=== PATIENT | female | born 1995 | race Caucasian/White ===

== ENCOUNTER 2021-07-12 22:56 | Emergency (ER) | payer BC, SELFPAY ==
[2021-07-12 23:45] VITALS: BP 119/70; PULSE 80; RESP 18; TEMP 36.9; O2SAT 19; BMI 42.5
[2021-07-13 01:18] VITALS: BP 111/70; PULSE 74; RESP 16; TEMP 36.8; O2SAT 100
[2021-07-13 02:10] VITALS: BP 111/69; PULSE 75; RESP 18; TEMP 36.6; O2SAT 99
--- NOTE | 2021-09-01 11:53 | HMH.EDGENADL ---
ED Disposition Clinical Impression: Migraine Qualifiers: Migraine type: without aura Status migrainosus presence: without status migrainosus Intractability: intractable Qualified Code(s): G43.019 - Migraine without aura, intractable, without status migrainosus Clinical Impression: (Ruled Out): Migraine aura without headache Disposition: Home, Self-Care Condition on Discharge: Good Instructions: Migraine Headaches (Alternative Therapy), Migraine -- Adult Referrals: Provider,Referral, MD [Primary Care Provider] - - Critical Care Critical Care Time: No Attestation: On 07/12/21, the high probability of a clinically significant, sudden or life threatening deterioration of the following system(s) required my full and direct attention, intervention and personal management. The time I documented below is in addition to time spent performing reported procedures but includes the following listed in this critical care notation. Medical Decision Making - Phil Inquiry Pt receiving controlled substance: No Vital Signs: 07/12/21 23:45 07/13/21 01:18 07/13/21 02:10 Temperature 98.4 F 98.2 F 97.9 F Temperature Source Oral Oral Oral Pulse Rate 74 75 Pulse Rate [Right] 80 Respiratory Rate 18 16 18 Blood Pressure 111/70 111/69 Blood Pressure [Right Arm] 119/70 Blood Pressure Mean [Right Arm] 86 Blood Pressure Source Automatic Cuff Blood Pressure Source [Right Arm] Automatic Cuff Blood Pressure Position Supine 02 Sat by Pulse Oximetry 19 L Oxygen Delivery Method Room Air Room Air Room Air Orders (Tests/Meds): ED MEDICATIONS Discontinued Medications Generic Name Dose Route Start Last Admin Trade Name Freq PRN Reason Stop Dose Admin Diphenhydramine HCl 50 mg 07/13/21 00:07 07/13/21 00:50 Diphenhydramine 50mg/Ml Vial IV 07/13/21 00:08 50 mg ONCE ONE Administration Lactated Ringer's 1,000 mls @ 999 mls/hr 07/13/21 00:15 07/13/21 00:50 Lactated Ringer's 1000 Ml Bag IV 07/13/21 01:15 999 mls/hr .Q1H1M ANTON Administration Magnesium Sulfate 2 gm/ Sodium 104 mls @ 100 mls/hr 07/13/21 00:07 07/13/21 00:49 Chloride IV 07/13/21 01:09 100 mls/hr ONCE ONE Administration Ketorolac Tromethamine 15 mg 07/13/21 00:07 07/13/21 00:50 Ketorolac 30mg/Ml Vial IV 07/13/21 00:08 15 mg ONCE ONE Administration Metoclopramide HCl 10 mg 07/13/21 06:00 07/13/21 00:50 Metoclopramide Hcl 10mg/2ml Vial IVP 08/12/21 05:59 10 mg ACHS ANTON Administration Sodium Chloride 10 ml 07/13/21 00:07 Sodium Chloride 0.9% 10ml Flush Syringe IV 07/13/21 12:09 NEEDED PRN Maintain IV Site Medical Decision Narrative: Patient is a 25-year-old female presenting to emergency department chief complaint of headache. Differential diagnosis includes tension headache, migraine headache, have low suspicion for subarachnoid hemorrhage given headache description, history of headaches, and worsening of headache since its onset. Given this plan to give patient back in cocktail and reassess. On reassessment patient stated that she had significant improvement in her headache, she was hemodynamically stable given that she was discharged in stable condition. General Adult HPI - General Chief complaint: Headache Stated complaint: NIXON Time Seen by Provider: 07/12/21 23:59 Mode of Arrival: Ambulatory Source of Information: Patient Limitations: No Limitations Description of Symptoms (Recalled from ER Triage Doc. by RN): Pt c/o migraine that started ~4pm today. She took tylenol with no relief. Pt does have a h/o migraines and takes Aimovig injections as a migraine preventative. Although pt does not take any acute migraine medications. - History of Present Illness HPI narrative: Patient is a 22-year-old female who is presenting to the emergency department chief complaint of headache. Patient states that she has a past medical history of migraine headaches ever states that this 1 is w
== END 2021-07-13 02:14 | disposition home or self-care (01) ==
PROVIDERS: Emergency Provider Emergency Medicine
DX: Z53.21 Procedure and treatment not carried out due to patient leaving prior to being seen by health care provider (principal)
CPT/HCPCS: 96365; 96367; 96375; 99282

== ENCOUNTER 2023-09-06 19:17 | Emergency (ER) | payer BC, SELFPAY ==
[2023-09-06 19:35] VITALS: BP 131/86; PULSE 84; RESP 19; TEMP 36.6; O2SAT 98; BMI 41.3
--- NOTE | 2023-09-06 20:04 | EXP.UTC ---
Discharge Plan Disposition Patient Disposition: Home, Self-Care Condition: Good Prescriptions Prescriptions: New cephalexin 500 mg tablet 500 mg PO TID 7 Days Qty: 21 0RF No Action amitriptyline 75 mg tablet 75 mg PO DAILY venlafaxine 150 mg capsule,extended release 24hr 150 mg PO DAILY Patient Comments: TAKE 1 CAPSULE BY MOUTH EVERY DAY phentermine 37.5 mg tablet 37.5 mg PO DAILY Emgality Syringe 120 mg/mL syringe 120 mg SQ MONTHLY Referrals Follow up/Referrals: Gómez Berrios DO [Staff Physician] - See instructions (Call office tomorrow for appointment) Marylou Rice MD [Primary Care Provider] - See instructions Activity Restrictions/Add. Instructions Additional Instructions/Restrictions: Change dressing on finger 2-3 times daily Call and make appointment with Orthopedics Call office tomorrow for appointment Make sure to keep wound clean If it starts bleeding again and you are not able to get it to stop go straight to the ER Clinical Impressions Clinical Impression: Avulsion of finger tip Qualifiers: Encounter type: initial encounter Qualified Code(s): S61.209A - Unspecified open wound of unspecified finger without damage to nail, initial encounter Instructions Patient Instructions: DI for Avulsion Laceration (Not Requiring Sutures) Discharge ED Provider: Kiera Rain [facility] General Stated complaint: AO 09/06, right pointer finger lac Mode of Arrival: Ambulatory Source of Information: Patient Limitations: No Limitations Time Seen by Provider: 09/06/23 19:45 Description of Symptoms (Recalled from Triage Doc. by RN): Cut right index finger cutting potatoes HEENT Symptoms (Recalled from RN notes): No Resp Symptoms (Recalled from RN notes): No Skin Symptoms (Recalled from RN notes): Yes MS Symptoms (Recalled from RN notes): No Functional Status (Recalled from RN notes): n/a History of Present Illness Provider Complaint: Patient states that she was cutting potatoes earlier and the knife slipped and she accidently cut inside of right index finger at the side of the finger States that she waited trying to get it to stop bleeding but it was still oozing so she came in Related Data Home Medications Medication Instructions Recorded Confirmed amitriptyline 75 mg tablet 75 mg PO DAILY 09/06/23 09/06/23 galcanezumab-gnlm 120 mg/mL 120 mg SQ MONTHLY 09/06/23 09/06/23 subcutaneous syringe (Emgality) phentermine 37.5 mg tablet 37.5 mg PO DAILY 09/06/23 09/06/23 venlafaxine 150 mg 150 mg PO DAILY 09/06/23 09/06/23 capsule,extended release 24 hr Previous Rx's Medication Instructions Recorded cephalexin 500 mg tablet 500 mg PO TID 7 days #21 tabs 09/06/23 Allergies Allergy/AdvReac Type Severity Reaction Status Date / Time No Known Allergies Allergy Verified 09/06/23 19:53 Worker's Comp Is this a Worker's Comp case?: No [facility] Disclaimer: The information contained in this section may have been updated after the patient was seen, as this information can be updated by other users. Social History Smoking Status: Unknown if ever smoked alcohol intake: never current occupational status: unemployed Travel in the last 8 weeks: None ROS Obtained: Yes All systems reviewed & no additional complaints except as documented and Yes Systems reviewed as appropriate & no additional complaints except as documented Constitutional Constitutional: Reports system reviewed and no additional complaints, except as documented and Reports as per HPI ENT Ears, Nose, Mouth, and Throat: Reports system reviewed and no additional complaints, except as documented and Reports as per HPI Cardiovascular Cardiovascular: Reports system reviewed and no additional complaints, except as documented and Reports as per HPI Musculoskeletal Musculoskeletal: Reports system reviewed and no additional complaints, except as documented and Reports as per HPI Integumentary/Breas
--- NOTE | 2023-09-06 20:08 | XR_ITS ---
PROCEDURE INFORMATION: Exam: XR Right Hand Exam date and time: 09/06/2023 8:04 PM Age: 27 years old Clinical indication: Injury or trauma; Laceration; Right; Index finger; Additional info: Laceration to index finger TECHNIQUE: Imaging protocol: Radiologic exam of the right hand. Views: 3 or more views. COMPARISON: No relevant prior studies available. FINDINGS: Bones/joints: Normal. Soft tissues: Distal 2nd finger laceration and soft tissue swelling. No opaque foreign bodies. IMPRESSION: Distal 2nd finger laceration and soft tissue swelling. No opaque foreign bodies.
[2023-09-06 20:53] VITALS: BP 137/86; PULSE 84; RESP 18; TEMP 36.6; O2SAT 98
== END 2023-09-06 20:53 | disposition home or self-care (01) ==
PROVIDERS: Emergency Provider Nurse Practitioner; PCP Family Medicine
DX: S61.200A Unspecified open wound of right index finger without damage to nail, initial encounter (principal); W26.0XXA Contact with knife, initial encounter
CPT/HCPCS: 73130; 99204; 99212; G0463

== ENCOUNTER 2024-08-14 19:52 | Emergency (ER) | payer BC, SELFPAY ==
[2024-08-14 19:53] VITALS: BP 135/88; PULSE 110; RESP 20; TEMP 36.7; O2SAT 99; BMI 42.5
--- NOTE | 2024-08-14 21:46 | HMH.EDGENADL ---
Discharge Plan Disposition Patient Disposition: Home, Self-Care Prescriptions Prescriptions: No Action amitriptyline 75 mg tablet 75 mg PO DAILY venlafaxine 150 mg capsule,extended release 24hr 150 mg PO DAILY Patient Comments: TAKE 1 CAPSULE BY MOUTH EVERY DAY phentermine 37.5 mg tablet 37.5 mg PO DAILY Emgality Syringe 120 mg/mL syringe 120 mg SQ MONTHLY cephalexin 500 mg tablet 500 mg PO TID 7 Days Qty: 21 0RF Referrals Follow up/Referrals: Marylou Rice MD [Primary Care Provider] - See instructions Activity Restrictions/Add. Instructions Additional Instructions/Restrictions: Please follow-up with your primary care provider. Please return to the emergency department if you develop any new or worsening symptoms or become concerned for your health. Clinical Impressions Clinical Impression: Abdominal pain, Nausea vomiting and diarrhea Instructions Patient Instructions: DI for Acute Abdominal Pain Print Language Print Language: Norwegian Discharge ED Provider: Thaddeus Abraham General Adult HPI <NELSON Sheffield - Last Filed: 08/14/24 22:56> General Chief complaint: Abdominal Pain Stated complaint: Stomach pain Time Seen by Provider: 08/14/24 21:46 Mode of Arrival: Ambulatory Source of Information: Patient Limitations: No Limitations Description of Symptoms (Recalled from ER Triage Doc. by RN): pt began having sharp centrally located abd pain at noon today and then n/v/d and then noticed rectal bleeding that was scant at 1500 today after a few episodes of diarrhea. pt states she does think she has a hemmrrhoid. pt is on several meds for anxiety/depression and migraines History of Present Illness HPI narrative: Patient presents for evaluation of nausea vomiting and abdominal pain. Patient states that started around noon today has been constant and unchanging throughout the day. She has been intolerant of any oral intake today. She denies any fever chills hemoptysis hematochezia melena diarrhea. She has started a GLP-1 last but does not report any noticeable side effects yet Related Data Home Medications ?Medication ?Instructions ?Recorded ?Confirmed amitriptyline 75 mg tablet 75 mg PO DAILY 09/06/23 09/09/23 galcanezumab-gnlm 120 mg/mL 120 mg SQ MONTHLY 09/06/23 09/09/23 subcutaneous syringe (Emgality) phentermine 37.5 mg tablet 37.5 mg PO DAILY 09/06/23 09/09/23 venlafaxine 150 mg 150 mg PO DAILY 09/06/23 09/09/23 capsule,extended release 24 hr Previous Rx's ?Medication ?Instructions ?Recorded cephalexin 500 mg tablet 500 mg PO TID 7 days #21 tabs 09/06/23 Allergies Allergy/AdvReac Type Severity Reaction Status Date / Time No Known Allergies Allergy Verified 09/09/23 08:58 PFS <NELSON Sheffield - Last Filed: 08/14/24 22:56> COUNTS INCLUDE 234 BEDS AT THE [facility] Disclaimer: The information contained in this section may have been updated after the patient was seen, as this information can be updated by other users. Social History Smoking Status: Never smoker alcohol intake: never current occupational status: unemployed Travel in the last 8 weeks: None <NELSON Sheffield - Last Filed: 08/14/24 22:56> ROS Obtained: Yes Systems reviewed as appropriate & no additional complaints except as documented Physical Exam <NELSON Sheffield - Last Filed: 08/14/24 22:56> General General appearance: alert and in no apparent distress Respiratory Respiratory exam: Present normal lung sounds bilaterally Cardiovascular Cardiovascular exam: Present regular rate Neurological Exam Neurological exam: Present alert and oriented X3 Medical Decision Making <NELSON Sheffield - Last Filed: 08/14/24 22:56> Medical Records Medical records reviewed: Yes I reviewed the patient's medical records. Screening: Per USPSTF and CDC recommendations, given the prevalence of disease in our region, it is our hospital?s policy to screen for HIV and viral Hepatitis for all patients aged 18 and over and those with ongoing risk factors. Hpil Inquiry Pt receiving controlled substance: No Vital Signs: 08/14/24 19:53 08/15/24 00:53 Temperature 98.0 F 98.0 F Temperature Source Oral Pulse Rate 105 H Pulse Rate [Right Radial] 110 H Respiratory Rate 20 20 Blood Pressure 125/68 Blood Pressure [Right Arm] 135/88 Blood Pressure Mean [Right Arm] 103 02 Sat by Pulse Oximetry 99 Oxygen Delivery Method Room Air Room Air Lab Data Lab results reviewed: Yes I reviewed the patient's lab results. Lab Results 08/14/24 21:40: Procalcitonin 0.043 08/14/24 21:45: WBC 14.7 H, RBC 4.91, Hgb 14.2, Hct 44.4, MCV 90.5, MCH 28.9, MCHC 31.9, RDW 14.8, Plt Count 456 H, MPV 7.7, Neut % (Auto) 85.6 H, Lymph % (Auto) 9.9 L, [place] % (Auto) 3.4, Eos % (Auto) 0.5, Baso % (Auto) 0.5, Neut # (Auto) 12.6 H, Lymph # (Auto) 1.5, [place] # (Auto) 0.5, Eos # (Auto) 0.1, Baso # (Auto) 0.1, Total Counted 100, Neutrophils % (Manual) 86 H, Lymphocytes % (Manual) 11, Monocytes % (Manual) 3, Platelet Estimate Slight increase, RBC Morphology Normal, Sodium 133 L, Potassium 4.1, Chloride 95 L, Carbon Dioxide 27, Anion Gap 15.1 H, BUN 15, Creatinine 0.90, Estimated Creat Clear 96, Estimated GFR 76, Est GFR ( Amer) 92, Glucose 120 H, Calcium 9.9, Total Bilirubin 0.7, AST 34, ALT 31, Alkaline Phosphatase 77, Total Protein 9.0 H, Albumin 4.9, Globulin 4.1 H, Albumin/Globulin Ratio 1.2, Lipase 86, Urine HCG, Qual Negative 08/14/24 21:51: Urine Color Yellow, Urine Appearance Clear, Urine pH 6.0, Ur Specific [place] >= 1.030, Urine Protein Negative, Urine Glucose (UA) Negative, Urine Ketones Trace, Urine Blood Trace-i, Urine Nitrate Negative, Urine Bilirubin Negative, Urine Urobilinogen 0.2, Ur Leukocyte Esterase Negative, Urine RBC Occasional, Urine WBC None, Ur Squamous Epith Cells 5-10, Urine Bacteria Trace 08/14/24 23:00: Lactate 0.9 08/14/24 21:45 08/14/24 21:45 Orders (Tests/Meds): ED MEDICATIONS Discontinued Medications Generic Name Dose Route Start Last Admin Trade Name Freq PRN Reason Stop Dose Admin Acetaminophen 1,000 mg 08/14/24 21:52 08/14/24 21:58 Acetaminophen 1,000mg/100ml Vial IV 08/14/24 21:53 1,000 mg ONCE ONE Administration Iopamidol 75 ml 08/14/24 23:34 08/14/24 23:35 Iopamidol-370 (76%);100ml Bottle IV 08/14/24 23:35 75 ml ONCE ONE Administration Ondansetron HCl 4 mg 08/14/24 21:52 08/14/24 21:58 Ondansetron 4mg/2ml Vial IV 08/14/24 21:53 4 mg ONCE ONE Administration Sodium Chloride 10 ml 08/14/24 23:34 08/14/24 23:35 Sodium Chloride 0.9% 10ml Syr (Rad Only) IV 09/13/24 23:33 10 ml NEEDED PRN Administration Maintain IV Site ORDERS Category Date Time Status CT abdomen pelvis w con Stat Cat Scan 08/14/24 22:42 Completed Complete Blood Count Auto Diff Stat Lab 08/14/24 21:45 Completed Comprehensive Metabolic Panel Stat Lab 08/14/24 21:45 Completed Lactic Acid Stat Lab 08/14/24 23:00 Completed Lipase Stat Lab 08/14/24 21:45 Completed Procalcitonin Stat Lab 08/14/24 21:40 Completed Urinalysis and Microscopic Stat Lab 08/14/24 21:51 Completed Urine , HCG Qual. Stat Lab 08/14/24 21:45 Completed Blood Culture Stat Micro 08/14/24 22:43 Received Medical Decision Narrative: In summary patient is a 28-year-old female who presents to the emergency department for evaluation of abdominal pain. Patient is initially normotensive but tachycardic upon arrival, afebrile. Physical exam is remarkable for mid abdominal pain to palpation without rebound or guarding or rigidity. She does have previous abdominal surgery for a cholecystectomy and appendectomy. Bowel sounds are normal.. Differential diagnosis includes pancreatitis versus gastroenteritis etc. Initial workup will be conducted with hematologic labs urinalysis CT scan abdomen pelvis. Initial interventions include crystalloid bolus Toradol Tylenol Zofran. Initial workup is pending at the time of handoff at [address] Abraham <Thaddeus Abraham MD - Last Filed: 08/15/24 02:10> Vital Signs: 08/14/24 19:53 08/15/24 00:53 Temperature 98.0 F 98.0 F Temperature Source Oral Pulse Rate 105 H Pulse Rate [Right Radial] 110 H Respiratory Rate 20 20 Blood Pressure 125/68 Blood Pressure [Right Arm] 135/88 Blood Pressure Mean [Right Arm] 103 02 Sat by Pulse Oximetry 99 Oxygen Delivery Method Room Air Room Air Lab Data Lab Results 08/14/24 21:40: Procalcitonin 0.043 08/14/24 21:45: WBC 14.7 H, RBC 4.91, Hgb 14.2, Hct 44.4, MCV 90.5, MCH 28.9, MCHC 31.9, RDW 14.8, Plt Count 456 H, MPV 7.7, Neut % (Auto) 85.6 H, Lymph % (Auto) 9.9 L, [place] % (Auto) 3.4, Eos % (Auto) 0.5, Baso % (Auto) 0.5, Neut # (Auto) 12.6 H, Lymph # (Auto) 1.5, [place] # (Auto) 0.5, Eos # (Auto) 0.1, Baso # (Auto) 0.1, Total Counted 100, Neutrophils % (Manual) 86 H, Lymphocytes % (Manual) 11, Monocytes % (Manual) 3, Platelet Estimate Slight increase, RBC Morphology Normal, Sodium 133 L, Potassium 4.1, Chloride 95 L, Carbon Dioxide 27, Anion Gap 15.1 H, BUN 15, Creatinine 0.90, Estimated Creat Clear 96, Estimated GFR 76, Est GFR ( Amer) 92, Glucose 120 H, Calcium 9.9, Total Bilirubin 0.7, AST 34, ALT 31, Alkaline Phosphatase 77, Total Protein 9.0 H, Albumin 4.9, Globulin 4.1 H, Albumin/Globulin Ratio 1.2, Lipase 86, Urine HCG, Qual Negative 08/14/24 21:51: Urine Color Yellow, Urine Appearance Clear, Urine pH 6.0, Ur Specific [place] >= 1.030, Urine Protein Negative, Urine Glucose (UA) Negative, Urine Ketones Trace, Urine Blood Trace-i, Urine Nitrate Negative, Urine Bilirubin Negative, Urine Urobilinogen 0.2, Ur Leukocyte Esterase Negative, Urine RBC Occasional, Urine WBC None, Ur Squamous Epith Cells 5-10, Urine Bacteria Trace 08/14/24 23:00: Lactate 0.9 Orders (Tests/Meds): ED MEDICATIONS Discontinued Medications Generic Name Dose Route Start Last Admin Trade Name Freq PRN Reason Stop Dose Admin Acetaminophen 1,000 mg 08/14/24 21:52 08/14/24 21:58 Acetaminophen 1,000mg/100ml Vial IV 08/14/24 21:53 1,000 mg ONCE ONE Administration Iopamidol 75 ml 08/14/24 23:34 08/14/24 23:35 Iopamidol-370 (76%);100ml Bottle IV 08/14/24 23:35 75 ml ONCE ONE Administration Ondansetron HCl 4 mg 08/14/24 21:52 08/14/24 21:58 Ondansetron 4mg/2ml Vial IV 08/14/24 21:53 4 mg ONCE ONE Administration Sodium Chloride 10 ml 08/14/24 23:34 08/14/24 23:35 Sodium Chloride 0.9% 10ml Syr (Rad Only) IV 09/13/24 23:33 10 ml NEEDED PRN Administration Maintain IV Site ORDERS Category Date Time Status CT abdomen pelvis w con Stat Cat Scan 08/14/24 22:42 Completed Complete Blood Count Auto Diff Stat Lab 08/14/24 21:45 Completed Comprehensive Metabolic Panel Stat Lab 08/14/24 21:45 Completed Lactic Acid Stat Lab 08/14/24 23:00 Completed Lipase Stat Lab 08/14/24 21:45 Completed Procalcitonin Stat Lab 08/14/24 21:40 Completed Urinalysis and Microscopic Stat Lab 08/14/24 21:51 Completed Urine , HCG Qual. Stat Lab 08/14/24 21:45 Completed Blood Culture Stat Micro 08/14/24 22:43 Received Medical Decision Narrative: In summary patient is a 28-year-old female who presents to the emergency department for evaluation of abdominal pain. Patient is initially normotensive but tachycardic upon arrival, afebrile. Physical exam is remarkable for mid abdominal pain to palpation without rebound or guarding or rigidity. She does have previous abdominal surgery for a cholecystectomy and appendectomy. Bowel sounds are normal.. Differential diagnosis includes pancreatitis versus gastroenteritis etc. Initial workup will be conducted with hematologic labs urinalysis CT scan abdomen pelvis. Initial interventions include crystalloid bolus Toradol Tylenol Zofran. Initial workup is pending at the time of handoff at [address] Abraham. Leigh TATUM: I assumed care of the patient at the time of handoff from the prior provider. On reassessment patient reports symptomatic improvement. Labs results interpreted by me and show mild leukocytosis, no significant electrolyte derangement, negative lipase. Urinalysis not concerning for infection. CT imaging interpreted by me and shows no evidence of pancreatitis, colitis or other pathology. Interactive discussion had with patient regarding presentation. Most likely source of her symptoms is the recent initiation of this is Zepbound. Symptoms could also be consistent with gastroenteritis. No evidence of emergent pathology at this time. Patient was discharged in stable condition with return precautions. She reports she has Zofran at home which has been helpful. I was consulted by the ELADIO, and we discussed the complexity of the problems being addressed. I approved the treatment and management plan for this patient?s care in the Emergency Department, thus performing a substantive portion of the medical decision making. Thaddeus Abraham MD Critical Care <NELSON Sheffield - Last Filed: 08/14/24 22:56> Critical Care Time Critical Care Time: No
[2024-08-14 21:55] LABS: Microscopic, Urine URINE MICROSCOPIC (MICROSCOPIC)
[2024-08-14] MEDS: ACETAMINOPHEN 1,000MG/100ML VIAL 1000 MG IV (21:58)
[2024-08-14] MEDS: ONDANSETRON 4MG/2ML VIAL 4 MG IV (21:58)
[2024-08-14 22:07] LABS: Basophils # 0.1 K/mm3 (0-0.2); Basophils % 0.5 % (0.1-2.0); Eosinophils # 0.1 K/mm3 (0.0-0.4); Eosinophils % 0.5 % (0.1-12.0); Hematocrit 44.4 % (37.0-47.0); Hemoglobin 14.2 g/dL (12.2-16.2); Lymphocytes # 1.5 K/mm3 (0.7-4.5); Lymphocytes % 9.9 % (10-50); Mean Corpuscular HGB Conc 31.9 g/dL (31.8-35.4); Mean Corpuscular Hemoglobin 28.9 pg (27.0-31.2); Mean Corpuscular Volume 90.5 fl (81-99); Mean Platelet Volume 7.7 fl (7.4-10.4); Monocytes # 0.5 K/mm3 (0.1-1.0); Monocytes % 3.4 % (1.7-9.3); Neutrophils # 12.6 K/mm3 (1.8-7.8); Neutrophils % 85.6 % (37.0-80.0); Platelet Count 456 K/mm3 (142-424); Red Blood Count 4.91 M/mm3 (4.20-5.40); Red Cell Distribution Width 14.8 % (11.5-17.5); White Blood Count 14.7 K/mm3 (4.8-10.8)
[2024-08-14 22:07] LABS: Appearance,Urine CLEAR (Clear); Bilirubin,Urine Negative (Negative); Blood, Urine TRACE-I (Negative); Color,Urine YELLOW (Yellow); Glucose,Urine (UA) Negative (Negative); Ketones,Urine TRACE (Negative); Leukocyte Esterase,Urine Negative (Negative); Nitrate,Urine Negative (Negative); Protein,Urine Negative (Negative); Specific Gravity, Urine >= 1.030 (1.005-1.030); Urobilinogen,Urine 0.2 EU/dl (0.2)
[2024-08-14 22:08] LABS: Albumin Level 4.9 g/dl (3.5-5.0); Chloride 95 mmol/L (98-107); Potassium 4.1 mmoL/L (3.5-5.1); Sodium 133 mmol/L (136-145); Urine Pregnancy, HCG Qual. Negative (Negative)
[2024-08-14 22:11] LABS: Alanine Aminotransferase 31 U/L (12-78); Albumin/Globulin Ratio 1.2 (1.1-1.8); Alkaline Phosphatase 77 U/L (38-126); Anion Gap 15.1 mEq/L (5-15); Aspartate Amino Transferase 34 U/L (14-36); Bilirubin,Total 0.7 mg/dl (0.2-1.3); Blood Urea Nitrogen 15 mg/dl (7-17); Calcium 9.9 mg/dl (8.4-10.2); Carbon Dioxide 27 mmol/L (22.0-30.0); Creatinine Clearance Estimated 96 mL/min (50-200); Estimated Glomerular Filt Rate 76 ml/min (>60); GFR (African American) 92 ML/MIN (>60); Globulin 4.1 g/dL (1.3-3.2); Glucose 120 mg/dl (74-100); MANUAL DIFFERENTIAL MANUAL DIFFERENTIAL (MANUAL DIFF)
[2024-08-14 22:20] LABS: Lipase 86 U/L (23-300)
[2024-08-14 22:21] LABS: Bacteria,Urine Trace /lpf; RBC,Urine Occasional #/hpf (0-3)
--- NOTE | 2024-08-14 22:42 | CT_ITS ---
PROCEDURE INFORMATION: Exam: CT Abdomen And Pelvis With Contrast Exam date and time: 08/14/2024 11:27 PM Age: 28 years old Clinical indication: Abdominal pain; Generalized; Additional info: Nausea vomiting abdominal pain TECHNIQUE: Imaging protocol: Computed tomography of the abdomen and pelvis with contrast. Radiation optimization: All CT scans at this facility use at least one of these dose optimization techniques: automated exposure control; mA and/or kV adjustment per patient size (includes targeted exams where dose is matched to clinical indication); or iterative reconstruction. Contrast material: ISOVUE; Contrast volume: 75 ml; Contrast route: IV; COMPARISON: No relevant prior studies available. FINDINGS: Lungs: Calcified left lower lobe granuloma. Liver: Normal. No mass. Gallbladder and biliary ducts: The gallbladder is absent. There is no biliary ductal dilation. Pancreas: Normal. No ductal dilation. Spleen: Normal. No splenomegaly. Adrenal glands: Normal. No mass. Kidneys and ureters: Normal. No hydronephrosis. Stomach and bowel: Unremarkable. No obstruction. No mucosal thickening. Appendix: No evidence of appendicitis. Intraperitoneal space: Unremarkable. No free air. No significant fluid collection. Vasculature: Unremarkable. No abdominal aortic aneurysm. Lymph nodes: Calcified epicardial lymph node. Urinary bladder: Unremarkable as visualized. Reproductive: Unremarkable as visualized. Bones/joints: Unremarkable. No acute fracture. Soft tissues: Unremarkable. IMPRESSION: There is no acute process evident within the abdomen or pelvis.
[2024-08-14 22:47] LABS: Lymphocytes % 11 % (10-50); Monocytes % 3 % (2-9); Neutrophils % 86 % (42-76); RBC Morphology Normal; Total Cells Counted 100
[2024-08-14 22:48] LABS: Platelet Estimate Slight Increase
[2024-08-14] MEDS: IOPAMIDOL-370 (76%);100ML BOTTLE 75 ML IV (23:35)
[2024-08-14] MEDS: SODIUM CHLORIDE 0.9% 10ML SYR (RAD ONLY) 10 ML IV (23:35)
[2024-08-14 23:41] LABS: Lactic Acid 0.9 mmol/L (0.7-2.1)
[2024-08-15] LABS: Procalcitonin 0.043 ng/mL (0.0-2.0)
[2024-08-15 00:53] VITALS: BP 125/68; PULSE 105; RESP 20; TEMP 36.7; O2SAT 95
== END 2024-08-15 00:54 | disposition home or self-care (01) ==
PROVIDERS: Physician Assistant; Emergency Provider Emergency Medicine; PCP Family Medicine
DX: R10.9 Unspecified abdominal pain (principal); R11.2 Nausea with vomiting, unspecified; R19.7 Diarrhea, unspecified
CPT/HCPCS: 99285; 96374; 96375; 74177; 80053; 81001; 81025; 83605; 83690; 84145; 85007; 85025; 87040; J0131; J2405; Q9967

== ENCOUNTER 2025-03-13 08:39 | Emergency (ER) | payer BC, SELFPAY ==
[2025-03-13] VITALS (8 sets, daily range): BP systolic 96–115; BP diastolic 55–69; PULSE 70–89; RESP 16–18; TEMP 37; O2SAT 98–100; BMI 39.5
--- NOTE | 2025-03-13 08:54 | XR_ITS ---
FINAL REPORT CLINICAL HISTORY: puncture wound plantar foot, r/o retained FB FINDINGS: RIGHT FOOT 3 views of the right foot were obtained. There is no acute fracture or dislocation. Visualized joint spaces are normally aligned. Soft tissues are unremarkable. IMPRESSION: No acute bony abnormality. Reviewed, Interpreted and Dictated by Darwin Lanza MD Transcribed by Elif Jorge Authenticated and [facility]
--- NOTE | 2025-03-13 09:03 | PC.NURSE ---
speaking with Dr. Hernandez
--- NOTE | 2025-03-13 09:16 | CT_ITS ---
FINAL REPORT TECHNIQUE: Axial imaging of the right foot was obtained with contrast. This study was performed with techniques to keep radiation doses as low as reasonably achievable (ALARA). Individualized dose reduction techniques using automated exposure control or adjustment of mA and/or kV according to the patient's size were employed. CLINICAL HISTORY: puncture wound bottom of foot, conc. retained shoe FINDINGS: There is no acute fracture or dislocation. Joint spaces are preserved. There is a small os trigonum noted measuring 9 mm. No radiopaque foreign body is identified. Soft tissues are unremarkable. IMPRESSION: No acute bony abnormality or radiopaque foreign body identified. Reviewed, Interpreted and Dictated by Darwin Lanza MD Transcribed by Elif Jorge Authenticated and . [facility]
--- NOTE | 2025-03-13 09:19 | ED_ITS ---
Discharge Plan Disposition Patient Disposition: Home, Self-Care Condition: Good Prescriptions Prescriptions: New ciprofloxacin HCl 500 mg tablet 500 mg PO BID Qty: 20 0RF sulfamethoxazole-trimethoprim [Bactrim DS] 800-160 mg tablet 1 tab PO BID 10 Days Qty: 20 0RF No Action amitriptyline 75 mg tablet 75 mg PO DAILY venlafaxine 150 mg capsule,extended release 24hr 150 mg PO DAILY Patient Comments: TAKE 1 CAPSULE BY MOUTH EVERY DAY phentermine 37.5 mg tablet 37.5 mg PO DAILY Emgality Syringe 120 mg/mL syringe 120 mg SQ MONTHLY cephalexin 500 mg tablet 500 mg PO TID 7 Days Qty: 21 0RF Referrals Follow up/Referrals: Marylou Rice MD [Primary Care Provider] - See instructions Leigha Hernandez DPM [Staff Physician] - See instructions Activity Restrictions/Add. Instructions Additional Instructions/Restrictions: You were evaluated in the emergency department today. Please keep your foot clean and dry. Do not submerge under any water. Use the hard sole shoe to help offload weight from your foot and provide support across your foot. Use the crutches as needed to support weightbearing in your foot. Please call Dr. Hernandez's office today to schedule an appointment. supervisor sterile processing your prescription for antibiotics and take the full course as prescribed. Return to the emergency department for new or worsening symptoms. Clinical Impressions Clinical Impression: Puncture wound of foot, right Stand Alone Forms Stand Alone Forms: Work/School Release Instructions Patient Instructions: DI for Puncture Wound Print Language Print Language: Wallisian Discharge ED Provider: Ngoc Davis General Adult HPI General Chief complaint: Wound/Laceration Stated complaint: AO 03/12/25, right foot puncture Time Seen by Provider: 03/13/25 08:46 Mode of Arrival: Ambulatory Description of Symptoms (Recalled from ER Triage Doc. by RN): pt to the ED with redness and swelling to her right root after stepping on a stick that went through her shoe and into the ball of her foot. pt top of right foot is swollen, red and tender to the touch. +2 pulses assessed in the effected feet. History of Present Illness HPI narrative: This patient is a 29-year-old female who denies significant past medical history presenting to the emergency department for evaluation with concern for puncture wound, redness, pain, and swelling to the right foot after stepping on a stick that went through her croc yesterday. She notes that this happened when she was doing yard work. Last tetanus shot was about 5 years ago. She has significant pain to her right foot with swelling and redness extending to the dorsum of the right foot. She is not sure if her shoe could have broken off or if she could have any sort of retained foreign body or not. No other concerns or complaints noted at this time. Related Data Home Medications ?Medication ?Instructions ?Recorded ?Confirmed amitriptyline 75 mg tablet 75 mg PO DAILY 09/06/23 09/09/23 galcanezumab-gnlm 120 mg/mL 120 mg SQ MONTHLY 09/06/23 09/09/23 subcutaneous syringe (Emgality) phentermine 37.5 mg tablet 37.5 mg PO DAILY 09/06/23 09/09/23 venlafaxine 150 mg 150 mg PO DAILY 09/06/23 09/09/23 capsule,extended release 24 hr Previous Rx's ?Medication ?Instructions ?Recorded cephalexin 500 mg tablet 500 mg PO TID 7 days #21 tabs 09/06/23 ciprofloxacin HCl 500 mg tablet 500 mg PO BID #20 tabs 03/13/25 sulfamethoxazole 800 1 tab PO BID 10 days #20 tabs 03/13/25 mg-trimethoprim 160 mg tablet (Bactrim DS) Allergies Allergy/AdvReac Type Severity Reaction Status Date / Time No Known Allergies Allergy Verified 09/09/23 08:58 [facility] Disclaimer: The information contained in this section may have been updated after the patient was seen, as this information can be updated by other users. Social History Smoking Status: Never smoker alcohol intake: never current occupational status: unemployed Travel in the last 8 weeks?: None Other Medical History Have you received the Flu Vaccine for this season: No Have you received the Pneumonia Vaccine: No ROS Obtained: Yes All systems reviewed & no additional complaints except as documented Physical Exam General General appearance: alert and in no apparent distress Head Head exam: atraumatic and normocephalic Eye Eye exam: Present normal appearance, PERRL and EOMI ENT ENT exam: Present normal exam, normal oropharynx, mucous membranes moist and normal external ear exam Neck Neck exam: Present normal inspection, full ROM and trachea midline; Absent tenderness Chest Chest inspection: Present normal inspection and symmetric chest wall rise; Absent tenderness Respiratory Respiratory exam: Present normal lung sounds bilaterally; Absent respiratory distress, wheezes, stridor or accessory muscle use Cardiovascular Cardiovascular exam: Present regular rate and normal rhythm Abdominal Exam Abdominal exam: Present soft; Absent distention, tenderness or guarding Extremities Exam Extremities exam: Present full ROM, tenderness, normal capillary refill, edema and other (Puncture wound to the plantar aspect of the right foot without obvious visible foreign body from the external surface. Redness, warmth, and swelling to the dorsum of the right foot. Neurovascularly intact) Back Exam Back exam: Present normal inspection and full ROM; Absent tenderness Neurological Exam Neurological exam: Present alert, oriented X3, CN II-XII intact and normal gait; Absent motor sensory deficit Psychiatric Psychiatric exam: Present normal affect and normal mood Skin Skin exam: Present warm and dry Medical Decision Making Medical Records Medical records reviewed: Yes I reviewed the patient's medical records. Screening: Per USPSTF and CDC recommendations, given the prevalence of disease in our region, it is our hospital?s policy to screen for HIV and viral Hepatitis for all patients aged 18 and over and those with ongoing risk factors. Phil Inquiry Pt receiving controlled substance: No Vital Signs: 03/13/25 08:51 03/13/25 09:31 03/13/25 10:00 Temperature 98.6 F Temperature Source Oral Pulse Rate 80 75 Pulse Rate [Left Radial] 70 Respiratory Rate 17 Blood Pressure 110/69 108/59 L Blood Pressure [Right Arm] 115/64 Blood Pressure Mean 75 Blood Pressure Mean [Right Arm] 81 Blood Pressure Source Blood Pressure Source [Right Arm] Automatic Cuff Blood Pressure Position [Right Arm] Sitting 02 Sat by Pulse Oximetry 100 99 100 Oxygen Delivery Method Room Air 03/13/25 10:31 03/13/25 11:00 03/13/25 11:30 Temperature Temperature Source Pulse Rate 89 84 79 Pulse Rate [Left Radial] Respiratory Rate 16 Blood Pressure 110/65 96/57 L 101/55 L Blood Pressure [Right Arm] Blood Pressure Mean 80 75 Blood Pressure Mean [Right Arm] Blood Pressure Source Blood Pressure Source [Right Arm] Blood Pressure Position [Right Arm] 02 Sat by Pulse Oximetry 100 100 99 Oxygen Delivery Method Room Air 03/13/25 12:00 03/13/25 12:01 Temperature 98.6 F Temperature Source Oral Pulse Rate 83 80 Pulse Rate [Left Radial] Respiratory Rate 17 18 Blood Pressure 102/56 L 102/56 L Blood Pressure [Right Arm] Blood Pressure Mean Blood Pressure Mean [Right Arm] Blood Pressure Source Automatic Cuff Blood Pressure Source [Right Arm] Blood Pressure Position [Right Arm] 02 Sat by Pulse Oximetry 98 Oxygen Delivery Method Room Air Room Air Lab Data Lab results reviewed: Yes I reviewed the patient's lab results. Lab Results 03/13/25 10:18: WBC 8.1, RBC 4.34, Hgb 12.7, Hct 39.1, MCV 90.1, MCH 29.3, MCHC 32.5, RDW 13.6, Plt Count 327, MPV 9.4, Neut % (Auto) 66.5, Lymph % (Auto) 24.0, [place] % (Auto) 6.9, Eos % (Auto) 1.7, Baso % (Auto) 0.5, Neut # (Auto) 5.4, Lymph # (Auto) 2.0, [place] # (Auto) 0.6, Eos # (Auto) 0.1, Baso # (Auto) 0.0, ESR 28 H, Sodium 139, Potassium 3.7, Chloride 103, Carbon Dioxide 29, Anion Gap 10.7, BUN 20 H, Creatinine 0.70, Estimated Creat Clear 225, Estimated GFR 100, Est GFR ( Amer) 121, Glucose 91, Calcium 9.1, Total Bilirubin 0.5, AST 26, ALT 21, Alkaline Phosphatase 67, C-Reactive Protein 14.1 H, Total Protein 7.6, Albumin 4.2, Globulin 3.4 H, Albumin/Globulin Ratio 1.2, Serum HCG, Qual Negative 03/13/25 10:18 03/13/25 10:18 Orders (Tests/Meds): ED MEDICATIONS Discontinued Medications Generic Name Dose Route Start Last Admin Trade Name Freq PRN Reason Stop Dose Admin Acetaminophen 1,000 mg 03/13/25 09:00 03/13/25 09:36 Acetaminophen 500mg Tab PO 03/13/25 09:01 1,000 mg ONCE ONE Administration Bacitracin 1 each 03/13/25 11:52 03/13/25 12:05 Bacitracin Oint 0.9gm Udp TP 03/13/25 11:53 1 each ONCE ONE Administration Ibuprofen 800 mg 03/13/25 09:00 03/13/25 09:36 Ibuprofen 400 Mg Tablet PO 03/13/25 09:01 800 mg ONCE ONE Administration Iopamidol 75 ml 03/13/25 10:24 03/13/25 10:26 Iopamidol-370 (76%);100ml Bottle IV 03/13/25 10:25 Not Given ONCE ONE Iopamidol 100 ml 03/13/25 10:26 03/13/25 10:27 Iopamidol-370 (76%);100ml Bottle IV 03/13/25 10:27 100 ml ONCE ONE Administration Levofloxacin 750 mg 03/13/25 09:13 03/13/25 09:32 Levofloxacin 750 Mg Tablet PO 03/13/25 09:14 750 mg ONCE ONE Administration Sodium Chloride 10 ml 03/13/25 10:24 03/13/25 10:25 Sodium Chloride 0.9% 10ml Syr (Rad Only) IV 03/13/25 10:25 10 ml ONCE ONE Administration Tetanus/Reduced Diphtheria/Acell Pertussis 0.5 ml 03/13/25 08:54 03/13/25 09:33 Tet/Diphth/Pert-Adult 0.5ml Syringe IM 03/13/25 08:55 0.5 ml .ONCE ONE Administration Trimethoprim/Sulfamethoxazole 1 each 03/13/25 09:16 03/13/25 09:36 Sulfa/Trimethoprim 1 Tablet PO 03/13/25 09:17 1 each ONCE ONE Administration ORDERS Category Date Time Status CT foot RT w con Stat Cat Scan 03/13/25 09:16 Completed Foot XR right minimum 3 views [XR foot RT min 3V] Stat Exams 03/13/25 08:54 Completed CRP [C-Reactive Protein] Stat Lab 03/13/25 10:18 Completed Complete Blood Count Auto Diff Stat Lab 03/13/25 10:18 Completed Comprehensive Metabolic Panel Stat Lab 03/13/25 10:18 Completed ESR [Erythrocyte Sedimentation Rate] Stat Lab 03/13/25 10:18 Completed Serum [HCG Qualitative, Serum] Stat Lab 03/13/25 10:18 Completed Medical Decision Narrative: In summary, this patient is a 29-year-old female presenting to the Emergency Department for evaluation of redness, warmth, pain, and swelling to the right foot after stepping on a stick that went through her shoe and into her foot yesterday. Differential diagnoses considered include but are not limited to retained foreign body, puncture wound, cellulitis, abscess. Ruling out the most morbid conditions drove assessment. On exam, the patient has redness, warmth, swelling to the dorsum of the right foot and a puncture wound to the plantar aspect of the right foot. No obvious pus draining, no obvious retained foreign body visible on external exam though I am concerned for this based on mechanism and the amount of soft tissue swelling that she has. workup included x-rays of the right foot. She was given Tdap booster, oral Bactrim and Levaquin for MRSA and Pseudomonas coverage, and oral Tylenol and ibuprofen. I independently interpreted x-ray prior to the radiologist read and noted no obvious retained foreign body. Please see their read for final interpretation. I had an interactive discussion with Dr. Hernandez with podiatry who recommended labs including ESR/CRP and CT foot. Labs were obtained that demonstrated reassuring CBC with no significant leukocytosis or anemia, reassuring chemistry. CRP and ESR very mildly elevated. On reassessment, the patient is resting comfortably. I independently interpreted CT prior to radiology read and noted no obvious retained foreign body. Please see their read for documentation. Given this, Dr. Dumont feels the patient is appropriate for outpatient antibiotics and close follow-up. They did call her to arrange close follow-up. She was discharged with prescriptions for Bactrim and ciprofloxacin, instructions for supportive care, and very strict return precautions. Critical Care Critical Care Time Critical Care Time: No
[2025-03-13] MEDS: levoFLOXacin 750 MG TABLET PO (09:32)
[2025-03-13] MEDS: TET/DIPHTH/PERT-ADULT 0.5ML SYRINGE 0.5 ML IM (09:33)
[2025-03-13] MEDS: SULFA/TRIMETHOPRIM 1 TABLET 1 EACH PO (09:36)
[2025-03-13] MEDS: IBUPROFEN 400 MG TABLET 800 MG PO (09:36)
[2025-03-13] MEDS: ACETAMINOPHEN 500MG TAB 1000 MG PO (09:36)
[2025-03-13] MEDS: SODIUM CHLORIDE 0.9% 10ML SYR (RAD ONLY) 10 ML IV (10:25)
[2025-03-13 10:26] LABS: Basophils % 0.5 % (0.1-2.0); Eosinophils # 0.1 Kmm3 (0.0-0.4); Eosinophils % 1.7 % (0.1-12.0); Hematocrit 39.1 % (37.0-47.0); Hemoglobin 12.7 g/dL (12.2-16.2); Mean Corpuscular HGB Conc 32.5 g/dL (31.8-35.4); Mean Corpuscular Hemoglobin 29.3 pg (27.0-31.2); Mean Corpuscular Volume 90.1 fl (81-99); Mean Platelet Volume 9.4 fl (7.4-10.4); Monocytes # 0.6 K/mm3 (0.1-1.0); Monocytes % 6.9 % (1.7-9.3); Neutrophils # 5.4 K/mm3 (1.8-7.8); Neutrophils % 66.5 % (37.0-80.0); Nucleated Red Blood Cells # 0 10^3/uL; Nucleated Red Blood Cells % 0 %; Platelet Count 327 K/mm3 (142-424); Red Blood Count 4.34 M/mm3 (4.20-5.40); Red Cell Distribution Width 13.6 % (11.5-17.5); Red Cell Distribution Width-SD 44.8 fL; White Blood Count 8.1 K/mm3 (4.8-10.8)
[2025-03-13] MEDS: IOPAMIDOL-370 (76%);100ML BOTTLE 100 ML IV (10:27)
[2025-03-13 10:40] LABS: HCG Qualitative, Serum Negative (Negative)
[2025-03-13 10:44] LABS: Alanine Aminotransferase 21 U/L (12-78); Albumin Level 4.2 g/dl (3.5-5.0); Albumin/Globulin Ratio 1.2 (1.1-1.8); Alkaline Phosphatase 67 U/L (38-126); Anion Gap 10.7 mEq/L (5-15); Aspartate Amino Transferase 26 U/L (14-36); Bilirubin,Total 0.5 mg/dl (0.2-1.3); Blood Urea Nitrogen 20 mg/dl (7-17); Calcium 9.1 mg/dl (8.4-10.2); Carbon Dioxide 29 mmol/L (22.0-30.0); Chloride 103 mmol/L (98-107); Creatinine Clearance Estimated 225 mL/min (50-200); Estimated Glomerular Filt Rate 100 ml/min (>60); GFR (African American) 121 ML/MIN (>60); Globulin 3.4 g/dL (1.3-3.2); Glucose 91 mg/dl (74-100); Potassium 3.7 mmoL/L (3.5-5.1); Sodium 139 mmol/L (136-145); Total Protein,Serum 7.6 g/dl (6.3-8.2)
[2025-03-13 10:48] LABS: C-Reactive Protein 14.1 mg/L (0-4)
[2025-03-13 11:22] LABS: Erythrocyte Sedimentation Rate 28 mm/hr (0-20)
[2025-03-13] MEDS: BACITRACIN OINT 0.9GM UDP 1 EACH TP (12:05)
== END 2025-03-13 12:14 | disposition home or self-care (01) ==
PROVIDERS: Emergency Provider Emergency Medicine; PCP Family Medicine
DX: S91.331A Puncture wound without foreign body, right foot, initial encounter (principal); W45.8XXA Other foreign body or object entering through skin, initial encounter; Z23 Encounter for immunization
CPT/HCPCS: 73630; 73701; 80053; 84703; 85025; 85651; 86140; 90471; 90715; 99284; Q9967